=== PATIENT | male | born 1990 | race Caucasian/White ===

== ENCOUNTER 2024-12-21 09:48 | Outpatient (REF) | payer MEDICAID, SELFPAY ==
--- OUTSIDE RECORDS SUMMARY | 2024-12-21 10:43 | XMS_ITS | Clinical Summary ---
Author Organization [employer] Address [address] [place] [address] Care Team Providers Care Technical Support Agent Name Role Phone Hayley Hughes MD Primary Care Provider [phone] Allergies Active Allergy Reactions Criticality Noted Date Comments Aspirin Unknown 02/26/2023 Shellfish-Derived Products Anaphylaxis,Angioedema High 12/05/2024 Medications Blood Pressure kitIndications:H ypertension, unspecified type Use to monitor blood pressure at home 1 kit 12/09/19 Active dapagliflozin (Farxiga) 10 MG Take 1 tablet by mouth Once per day. 12/09/19 Active hydrALAZINE (Apresoline) 25 MG tablet Take 1 tablet by mouth 3 times daily. 12/08/19 25 2024 Active metoprolol succinate XL (Toprol-XL) 100 MG 24 hr tablet Take 1 tablet by mouth Once per day. 12/09/19 25 2025 Active nicotine (Nicoderm, Step 1) 21 MG/24HR patch Place 1 patch on the skin 1 (one) time each day at the same time. 12/08/192024 Active spironolactone (Aldactone) 25 MG tablet Take 1 tablet by mouth Once per day. 12/09/19 25 2024 Active dextran 70-hypromellose (dextran-70 & hydroxypropyl methylcellulose) 0.1-0.3 % ophthalmic solution Administer 1 drop into the right eye if needed in the morning, at noon, and at bedtime for dry eyes. 15 mL 12/22/19 25 2025 Active sacubitril-valsa rtan (Entresto) 24-26 MG tablet Take 1 tablet by mouth 2 times daily. 180 tablet 1 12/22/19 Active hydrOXYzine HCl (Atarax) 25 MG tablet TAKE 1 TABLET BY MOUTH TWICE DAILY NEEDED FOR ANXIETY 60 tablet 6 02/29/202024 Discontinued(M ed list cleanup (will not trigger notification to Pharmacy)) buPROPion SR (Wellbutrin SR) 150 MG 12 hr tablet TAKE 1 TABLET BY MOUTH ONCE DAILY FOR 3 DAYS THEN INCREASE TO 1 TABLET TWICE DAILY 60 tablet 02/29/202024 Discontinued(M ed list cleanup (will not trigger notification to Pharmacy)) amLODIPine (Norvasc) 5 MG tablet Take 1 tablet (5 mg) by mouth in the morning. 90 tablet 3 02/27/202024 Discontinued(M ed list cleanup (will not trigger notification to Pharmacy)) hydroCHLOROthiaz chapin (HYDRODiuril) 50 MG tablet Take 1 tablet (50 mg) by mouth in the morning. 30 tablet 11 03/12/202024 Discontinued(M ed list cleanup (will not trigger notification to Pharmacy)) lisinopril 40 MG tablet Take 1 tablet (40 mg) by mouth in the morning. 30 tablet 11 03/12/202024 Discontinued(M ed list cleanup (will not trigger notification to Pharmacy)) sacubitril-valsa rtan (Entresto) 24-26 MG tablet Take 1 tablet by mouth 2 times daily. 12/08/19 25 2024 Discontinued(R eorder (will not trigger notification to Pharmacy)) dextran 70-hypromellose (dextran-70 & hydroxypropyl methylcellulose) 0.1-0.3 % ophthalmic solution Administer 1 drop into the right eye if needed in the morning, at noon, and at bedtime. 12/18/19 25 2024 Discontinued(R eorder (will not trigger notification to Pharmacy)) Active Problems Problem Noted Date Diagnosed Date CKD (chronic kidney disease) 12/20/2024 ACC/AHA stage B systolic heart failure 5 Polycystic kidney, adult type 06/16/2020 Hypertension 12/02/2019 02/26/2023 Assessment & Plan (12/21/2024 9:46 AM EDT): -Goal BP < 130/80 per ACC/AHA guideline (Treatment threshold >=130/80) - -Continue working on lifestyle modifications -Recommended self-monitoring BP. -Continue current medications: -Treatment Hx: Tobacco use 12/20/2014 Encounters Date Type Department Care Team Description 12/21/2024 9:00 AM EDT Office Visit [address] [address] Deborah De Leon MD Stage 3a chronic kidney disease (CMS/HCC) (Primary Dx); Hypertension, unspecified type; Polycystic kidney, adult type; Dietary counseling; Exercise counseling; Class 1 obesity due to excess calories with serious comorbidity and body mass index (BMI) of 34.0 to 34.9 in adult; Blurry vision; Subconjunctival hemorrhage of right eye 12/21/2024 Travel 12/18/[address] [address] Deborah De Leon MD CHART PREP 12/18/[address] [address] Lakshmi Oreilly, PharmD FYI 12/18/[address] [address] Hayley Hughes MD Medication Question 12/08/[address] [address] Hayley Hughes MD Hypertension, unspecified type 12/07/2024 Patient Outreach [address] [address] Hayley Hughes MD Transition Of Care (Tcm) (HDF unscheduled ) 12/07/[address] [address] Hayley Hughes MD Hospital Follow-up from Last 3 Months Immunizations Immunization Administration Dates Next Due Influenza injectable quadriv alent IIV4 with preservative 01/22/2017 Social History Tobacco Use Types Packs/Day Years Used Date Smoking Tobacco: Every Day Cigarettes Passive Smoke Exposure: Past Smokeless Tobacco: Never Tobacco Cessation:Ready to Q uit: Not Asked; Counseling Given: Not Answered Depression Answer Date Recorded Patient Health Questionnaire-9 Score 0 12/21/2024 Patient Health Questionnaire-9 Score 0 12/21/2024 Last PHQ-9: Questionnaire Data Not on file 0 12/21/2024 Housing Stability Answer Date Recorded What is your housing situation today? I have jose cruz rasheed 08/19/[address] you li ve. Do you have problems with any of the following? None of the above 08/19/2023 Food Insecurity Answer Date Recorded Within the past 12 months, y ou worried that your food would run out before you got money to buy more: Never True 08/19/2023 Within the past 12 months,th e food you bought just didn't last and you didn't have enough money to get more: Never True Transportation Answer Date Recorded In the past 12 months, has l ack of transportation kept you from medical appts, meetings, work or from getting things needed for daily living? No 08/19/2023 Utilities Answer Date Recorded In the past 12 months, has t he electric, gas, oil or water company threatened to shut off services in your home? No 08/19/2023 Depression Answer Date Recorded Patient Health Questionnaire-2 Score 0 12/21/2024 Sex and Gender Information Value Date Recorded Sex Assigned at Male 02/26/2022 10:27 AM EDT Legal Sex Male 10:27 AM EDT Gender Identity Male 02/26/2022 10:27 AM EDT Sexual Orientation Straight 02/26/2022 10 :27 AM EDT Last Filed Vital Signs Vital Sign Reading Time Taken Comments Blood Pressure 164/100 12/21/2024 9:29 AM EDT Pulse 57 12/21/2024 9:15 AM EDT Temperature 36.2 C (97.1 F) 12/21/2024 9:15 AM EDT Respiratory Rate 14 12/21/2024 9:15 AM EDT Oxygen Saturation 100% 12/21/2024 9:15 AM EDT Inhaled Oxygen Concentration - - Weight 105 kg (230 lb 12.8 oz) 12/21/2024 9:15 A M EDT Height 175.3 cm (5' 9 ) 12/21/2024 9:15 AM EDT Body Mass Index 34.08 12/21/2024 9:15 AM EDT Plan of Treatment Upcoming Encounters Date Type Department Care Team (Late st Contact Info) Description 02/05/2025 1:45 PM EDT Office Visit [facility] [address] [place] [address] Hayley Hughes MD [address] [place] [address] Health Maintenance Due Date Last Done Comments HIV Screening 1990 Lipid Panel 1990 Family Planning (PISQ) 2005 HPV Vaccines (1 - Male 3-dos e series) 2005 Hepatitis C Screening 2008 DTaP/Tdap/Td Vaccines (1 - Tdap) 2009 Hepatitis B Vaccines (1 of 3 - 19+ 3-dose series) 2009 Pneumococcal Vaccine: Pediatrics (0 to 5 Years) and At-Risk Patients (6 to 49) Years (1 of 2 - PCV) 2009 COVID-19 Vaccine (4 - 2023-2 5 season) 2023 05/11/2021, 09/07/2020, 08/10/2020 SDOH Screening 08/18/2024 08/19/2023 Influenza Vaccine (#1) 2024 01/22/2017 Alcohol/Substance Use Screening 12/21/2025 12/21/2024 Depression Screening 12/21/2025 12/21/2024, 12/21/2024 Disability Screening 12/21/2025 12/21/2024 Tobacco Screening 12/21/2025 12/21/2024 Zoster Vaccines (1 of 2) 2040 RSV Patients and Patients Aged 60 years or older (1 - 1-dose 75+ series) 2065 HIB Vaccines Aged Out No longer eligi ble based on patient's age to complete this topic Hepatitis A Vaccines Aged Out No long er eligible based on patient's age to complete this topic IPV Vaccines Aged Out No longer eligi ble based on patient's age to complete this topic Meningococcal B Vaccine Aged Out No l onger eligible based on patient's age to complete this topic Meningococcal Vaccine Aged Out No matt eben eligible based on patient's age to complete this topic RSV under 20 months Aged Out No longe r eligible based on patient's age to complete this topic Rotavirus Vaccines Aged Out No longer eligible based on patient's age to complete this topic Insurance C3 Care Teams Technical Support Agent Relationship Specialty Start Date End Date Hayley Hughes MD [address] [place] [id number] PCP - General Family Medicine 01/01/24
--- OUTSIDE RECORDS SUMMARY | 2024-12-21 10:43 | XMS_ITS | Encounter Summary ---
Author Organization [facility], Address [address] [place] [address] Phone Care Team Providers Care Professor Of Architecture Name Role Phone Amarjit Biggs MD Primary Care Provider Unav ailable Encounter Details Date Type Department Care Team (Late st Contact Info) Description 11/03/2021 Documentation Only [facility], [address] [place] [address] [place] [address] [place] [address] Social History Tobacco Use Types Packs/Day Years Used Date Smoking Tobacco: Every Day Cigarettes Alcohol Use Standard Drinks/Week Comments No 0 (1 standard drink = 0.6 oz pur e alcohol) Sex and Gender Information Value Date Recorded Sex Assigned at Not on file Legal Sex Male 4:36 PM EST Gender Identity Not on file Sexual Orientation Not on file documented as of this encounter Plan of Treatment Not on file documented as of this encounter Visit Diagnoses Not on filedocumented in this encounter Care Teams Professor Of Architecture Relationship Specialty Start Date End Date Amarjit Biggs MD PCP - General Internal Medicine 11/11/19 documented as of this encounter
--- OUTSIDE RECORDS SUMMARY | 2024-12-21 10:43 | XMS_ITS | Clinical Summary ---
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 Relative 0.1 % LAB HEMETOLOGY METHOD 12/06/2024 8:14 AM [facility] Neutrophils Absolute 4.39 1.50 - 7.00 K/mcL LAB HEMETOLOGY METHOD 12/06/2024 8:14 AM [facility] Lymphocytes Absolute 2.08 1.00 - 5.00 K/mcL LAB HEMETOLOGY METHOD 12/06/2024 8:14 AM [facility] Monocytes Absolute 0.61 0.20 - 1.00 K/mcL LAB HEMETOLOGY METHOD 12/06/2024 8:14 AM [facility] Eosinophils Absolute 0.07 0.00 - 0.50 K/mcL LAB HEMETOLOGY METHOD 12/06/2024 8:[address] [facility] Basophils Absolute 0.04 0.00 - 0.20 K/[facility] LAB HEMETOLOGY METHOD 12/06/2024 8:[address] [facility] Immature Granulocytes Absolute 0.01 0.00 - 0.03 K/[facility] LAB HEMETOLOGY METHOD 12/06/2024 8:[address] [facility] Blood Venous blood specimen / Unknown Venipuncture / Unknown 12/06/2024 6:04 AM EDT 12/06/2024 6:24 AM EDT Akira Sky MD LAB BLOOD ORDERABLES Final Result Performing Organization Address City/[facility]/ZIP Co de Phone Number [facility] [address] [place] [address], * (ABNORMAL) B-type natriuretic peptide (12/06/2024 6:04 AM EDT) BNP 188(H) <=100 pcg/mL LAB CHEMISTRY METHOD 12/06/2024 8:[address] [facility] Blood Venous blood specimen / Unknown Venipuncture / Unknown 12/06/2024 6:04 AM EDT 12/06/2024 6:24 AM EDT Akira Sky MD LAB BLOOD ORDERABLES Final Result [facility] [address] [place] [address], [place] [phone] * Pathologist review immunofixation, urine random (12/06/2024 1:24 AM EDT) Pathologist Interpretation Ivory Kate MD 12/09/2024 11:[address] [facility] Urine Urine specimen obtained by clean catch procedure / Unknown Non-blood Collection / Unknown 12/06/2024 1:24 AM EDT 12/06/2024 1:45 AM EDT us Dc Ro MD LAB URINE ORDERABLES Final Resu lt [facility] [address] [place] [address], [place] [phone] * (ABNORMAL) Urinalysis with reflex microscopic (12/06/2024 1:24 AM EDT) Specific [place] Urine 1.012 1.003 - 1.030 LAB URINALYSIS - AUTOMATED METHOD 12/06/2024 1:56 AM [facility] pH, Urine 6.0 5.0 - 8.0 pH LAB URINALYSIS - AUTOMATED METHOD 12/06/2024 1:56 AM [facility] Leukocytes, Urine Negative Negative LAB URINALYSIS - AUTOMATED METHOD 12/06/2024 1:56 AM [facility] Nitrite, Urine Negative Negative LAB URINALYSIS - AUTOMATED METHOD 12/06/2024 1:56 AM [facility] Protein, Urine 100(A) <=Trace mg/dL LAB URINALYSIS - AUTOMATED METHOD 12/06/2024 1:56 AM [facility] Glucose, Urine Negative Negative mg/dL LAB URINALYSIS - AUTOMATED METHOD 12/06/2024 1:56 AM [facility] Ketones, Urine Negative Negative mg/dL LAB URINALYSIS - AUTOMATED METHOD 12/06/2024 1:56 AM [facility] Urobilinogen, Urine 0.2 0.2 - 1.0 mg/dL LAB URINALYSIS - AUTOMATED METHOD 12/06/2024 1:56 AM [facility] Bilirubin, Urine Negative Negative LAB URINALYSIS - AUTOMATED METHOD 12/06/2024 1:56 AM [facility] Blood, Urine Trace(A) Negative LAB URINALYSIS - AUTOMATED METHOD 12/06/2024 1:[address] [facility] RBC, Urine 2.9 0 - 4 /HPF LAB URINALYSIS - AUTOMATED METHOD 12/06/2024 1:[address] [facility] WBC, Urine 0.5 0 - 4 /HPF LAB URINALYSIS - AUTOMATED METHOD 12/06/2024 1:[address] [facility] Squamous Epithelial, Urine 3 0 - 60 /LPF LAB URINALYSIS - AUTOMATED METHOD 12/06/2024 1:[address] [facility] Bacteria, Urine Negative Negative /HPF LAB URINALYSIS - AUTOMATED METHOD 12/06/2024 1:[address] [facility] Hyaline Casts, Urine 0.0 0 - 3 /LPF LAB URINALYSIS - AUTOMATED METHOD 12/06/2024 1:[address] [facility] Urine Urine specimen obtained by clean catch procedure / Unknown Non-blood Collection / Unknown 12/06/2024 1:24 AM EDT 12/06/2024 1:44 AM EDT us Akira Sky MD LAB URINE ORDERABLES Final Result Performing Organization Address [facility]/State/ZIP Co de Phone Number [facility] [address] [place] [address], * Sadler urine culture tube (12/06/2024 1:24 AM EDT) Extra Tube Hold for add-ons. 12/06/2024 3:[address] [facility] Comment:Auto resulted. Urine Urine specimen obtained by clean catch procedure / Unknown 12/06/2024 1:24 AM EDT 12/06/2024 1:45 AM EDT us Akira Sky MD LAB URINE ORDERABLES Final Result Performing Organization Address City/[facility]/ZIP Co de Phone Number [facility] [address] [place] [address], [place] [phone] * Immunofixation, urine (12/06/2024 1:24 AM EDT) [facility] Immunofixation Electrophoresis, Urine No monoclonal immunoglobulins detected. LAB CHEMISTRY METHOD 12/09/2024 11:[address] [facility] Urine Urine specimen obtained by clean catch procedure / Unknown Non-blood Collection / Unknown 12/06/2024 1:24 AM EDT 12/06/2024 1:45 AM EDT Dc Ro MD LAB URINE ORDERABLES Final Resu lt Performing Organization Address [facility] Co de Phone Number [facility] [address] [place] [address], [place] [phone] * Drug abuse screen 8a panel, urine (12/06/2024 1:24 AM EDT) [facility] Amphetamine Screen, Ur Negative Negative LAB CHEMISTRY METHOD 12/06/2024 2:[address] [facility] Comment:Certain OTC medicati ons containing ephedrine, phenylephrine, pseudoephedrine and phenylpropanolamine can cause false positive results. Barbiturate Screen, Ur Negative Negative LAB CHEMISTRY METHOD 12/06/2024 2:[address] [facility] Benzodiazepine Screen, Ur Negative Negative LAB CHEMISTRY METHOD 12/06/2024 2:[address] [facility] Cocaine Screen, Ur Negative Negative LAB CHEMISTRY METHOD 12/06/2024 2:[address] [facility] Opiate Screen, Ur Negative Negative LAB CHEMISTRY METHOD 12/06/2024 2:[address] [facility] Cannabinoid (THC) Screen, Ur Negative Negative LAB CHEMISTRY METHOD 12/06/2024 2:[address] [facility] Comment:Specimens from patie nts taking pantoprazole sodium (Protonix) have been shown to produce false positive results. Oxycodone Screen, Ur Negative Negative LAB CHEMISTRY METHOD 12/06/2024 2:[address] [facility] Fentanyl, Ur Negative Negative LAB CHEMISTRY METHOD 12/06/2024 2:[address] [facility] Urine Urine specimen obtained by clean catch procedure / Unknown Non-blood Collection / Unknown 12/06/2024 1:24 AM EDT 12/06/2024 1:[address] [facility] - 12/06/2024 2:22 AM EDT Assay cutoffs: Amphetamines 1000 ng/mL Barbiturates 200 ng/mL Benzodiazepines 200 ng/mL Cocaine 300 ng/mL Fentanyl 1 ng/mL Opiates 300 ng/mL Oxycodone 100 ng/mL THC 50 ng/mL Semi-quantitative assay for screening purposes only. Unconfirmed screening result should not be used for non-medical purposes. *ALTERNATE METHOD CONFIRMATION DONE UPON REQUEST ONLY* Akira Sky MD LAB URINE ORDERABLES Final Result Performing Organization Address City/[facility]/ZIP Co de Phone Number [facility] [address] [place] [address], [place] [phone] * Sodium, urine, random (12/06/2024 1:24 AM EDT) Sodium, Ur 102 mmol/L LAB CHEMISTRY METHOD 12/06/2024 2:[address] [facility] Urine Urine specimen obtained by clean catch procedure / Unknown Non-blood Collection / Unknown 12/06/2024 1:24 AM EDT 12/06/2024 1:45 AM EDT us Akira Sky MD LAB URINE ORDERABLES Final Result Performing Organization Address [facility]/ZIP Co de Phone Number [facility] [address] [place] [address], [place] [phone] * Protein, urine, random (12/06/2024 1:24 AM EDT) Protein, Urine 72 mg/dL LAB CHEMISTRY METHOD 12/06/2024 2:[address] [facility] Urine Urine specimen obtained by clean catch procedure / Unknown Non-blood Collection / Unknown 12/06/2024 1:24 AM EDT 12/06/2024 1:45 AM EDT us Akira Sky MD LAB URINE ORDERABLES Final Result [facility] [address] [place] [address], [place] [phone] * Creatinine, urine, random (12/06/2024 1:24 AM EDT) Creatinine, Urine 54.0 mg/dL LAB CHEMISTRY METHOD 12/06/2024 2:[address] [facility] Urine Urine specimen obtained by clean catch procedure / Unknown Non-blood Collection / Unknown 12/06/2024 1:24 AM EDT 12/06/2024 1:45 AM EDT us Akira Sky MD LAB URINE ORDERABLES Final Result [facility] [address] [place] [address], [place] [phone] * ECG 12 lead (12/05/2024 11:40 PM EDT) Only the most recent of2 resultswithin the time period is included. Ventricular Rate ECG 94 BPM [facility] Atrial Rate 94 BPM [facility] P-R Interval 142 ms [facility] QRS Duration 96 ms [facility] Q-T Interval 366 ms [facility]EM[facility] QTc 457 ms GEMUSE P Wave [place] 39 degrees GEMUSE R [place] -29 degrees GEMUSE T [place] 95 degrees GEMUSE ECG Interpretation Normal sinus rhythm Left atrial enlargement Left ventricular hypertrophy ( R in aVL , Trey product , Romhilt-Brooks ) Cannot rule out Septal infarct (cited on or before 05-DEC-2024) T wave abnormality, consider lateral ischemia When compared with ECG of 05-DEC-2024 22:10, (unconfirmed) No significant change was found Confirmed by BRANDY NOLAN ([id number]) on 12/07/2024 12:41:51 AM [facility] 12/05/2024 11:4 0 PM EDT 12/07/2024 12:41 AM EDT us Maria Teresa Live MD ECG ORDERABLES Final Result [facility] * XR Chest 2 Views (12/05/2024 11:24 PM EDT) Anatomical Region Laterality Modality Body Radiographic Felicitas ging 12/06/2024 8:42 AM EDT Impressions 12/06/2024 8:43 AM EDT Normal chest radiographs. -------- FINAL REPORT -------- Dictated By: See Wood Dictated Date: 12/06/2024 08:42 ET Assigned Physician: See Wood Reviewed and Electronically Signed By: See Wood Signed Date: 12/06/2024 08:43 ET Workstation ID: [id number] Transcribed By: Self Edit Transcribed Date: 12/06/2024 08:42 ET Narrative 12/06/2024 8:43 AM EDT PROCEDURE: PA and lateral radiographs of the chest. HISTORY: chest pain. COMPARISON: None. FINDINGS: The heart, mediastinum, lungs, pleural spaces, and bony thorax are normal. Procedure Note See Wood MD - 12/06/2024 PROCEDURE: PA and lateral radiographs of the chest. HISTORY: chest pain. COMPARISON: None. FINDINGS: The heart, mediastinum, lungs, pleural spaces, and bony thorax arenormal. IMPRESSION: Normal chest radiographs. -------- FINAL REPORT -------- Dictated By: See Wood Dictated Date: 12/06/2024 08:42 ET Assigned Physician: See Wood Reviewed and Electronically Signed By: See Wood Signed Date: 12/06/2024 08:43 ET Workstation ID: [id number] Transcribed By: Self Edit Transcribed Date: 12/06/2024 08:42 ET us Maria Teresa Live MD IMG XR PROCEDURES Final Result * Lipase (12/05/2024 10:24 PM EDT) [facility] Lipase 44 13 - 75 unit/L LAB CHEMISTRY METHOD 12/05/2024 11:[address] [facility] Blood Venous blood specimen / Unknown Venipuncture / Unknown 12/05/2024 10:24 PM EDT 12/05/2024 10:30 PM EDT us Maria Teresa Live MD LAB BLOOD ORDERABLES Final Resul t Performing Organization Address City/[facility]/ZIP Co de Phone Number [facility] [address] [place] [address], [place] [phone] * Hemoglobin A1c (12/05/2024 10:24 PM EDT) [facility] Hemoglobin A1C 5.4 <6.5 % LAB CHEMISTRY METHOD 12/06/2024 11:[address] [facility] Mean Bld Glu Estim. 108 mg/dL LAB CHEMISTRY METHOD 12/06/2024 11:[address] [facility] Blood Venous blood specimen / Unknown Venipuncture / Unknown 12/05/2024 10:24 PM EDT 12/05/2024 10:31 PM EDT us Akira Sky MD LAB BLOOD ORDERABLES Final Result Performing Organization Address City/[facility]/ZIP Co de Phone Number [facility] [address] [place] [address], [place] [phone] * (ABNORMAL) Comprehensive metabolic panel (12/05/2024 10:24 PM [facility]) Sodium 139 133 - 145 mmol/L LAB CHEMISTRY METHOD 12/05/2024 11:02 PM [facility] Potassium 3.7 3.5 - 5.5 mmol/L LAB CHEMISTRY METHOD 12/05/2024 11:02 PM [facility] Chloride 108 96 - 110 mmol/L LAB CHEMISTRY METHOD 12/05/2024 11:02 PM [facility] CO2 24 21 - 32 mmol/L LAB CHEMISTRY METHOD 12/05/2024 11:02 PM [facility] Anion Gap 7 3 - 11 LAB CHEMISTRY METHOD 12/05/2024 11:02 PM [facility] Glucose 94 70 - 100 mg/dL LAB CHEMISTRY METHOD 12/05/2024 11:02 PM [facility] BUN 25 5 - 25 mg/dL LAB CHEMISTRY METHOD 12/05/2024 11:02 PM [facility] Creatinine 1.77(H) 0.70 - 1.30 mg/dL LAB CHEMISTRY METHOD 12/05/2024 11:02 PM [facility] eGFR 51(L) >=60 mL/min/1. 73m2 LAB CHEMISTRY METHOD 12/05/2024 11:02 PM [facility] Comment:Calculation based on the Chronic Kidney Disease Epidemiology Collaboration (CKD-EPI) equation refit without adjustment for race. BUN/Creatinine Ratio 14.1 LAB CHEMISTRY METHOD 12/05/2024 11:02 PM [facility] Calcium 9.3 8.5 - 10.5 mg/dL LAB CHEMISTRY METHOD 12/05/2024 11:02 PM [facility] AST (SGOT) 27 10 - 42 unit/L LAB CHEMISTRY METHOD 12/05/2024 11:02 PM [facility] ALT (SGPT) 28 10 - 60 unit/L LAB CHEMISTRY METHOD 12/05/2024 11:[address] [facility] Alkaline Phosphatase 89 42 - 121 unit/L LAB CHEMISTRY METHOD 12/05/2024 11:[address] [facility] Total Protein 7.2 6.0 - 8.0 g/dL LAB CHEMISTRY METHOD 12/05/2024 11:[address] [facility] Albumin 4.1 3.2 - 5.0 g/dL LAB CHEMISTRY METHOD 12/05/2024 11:[address] [facility] Total Bilirubin 0.5 0.0 - 1.4 mg/dL LAB CHEMISTRY METHOD 12/05/2024 11:[address] [facility] Blood Venous blood specimen / Unknown Venipuncture / Unknown 12/05/2024 10:24 PM EDT 12/05/2024 10:30 PM EDT us Maria Teresa Live MD LAB BLOOD ORDERABLES Final Resul t [facility] [address] [place] [address], from Last 3 Months Insurance MEDICAID - [place] Advance Directives * Full Code - Default (Latest Code Status on File) Date Activated Date Inactivated Comments 12/06/2024 12:32 AM 12/07/2024 3:53 PM This is ord er is used when code status has not been discussed with the patient, or code status is otherwise unknown/unconfirmed To update the patient's code status, place a code status order. Do not modify or discontinue any currently active code status orders. Care Teams Legislative Aide Relationship Specialty Start Date End Date Physician, Pcp Unknown PCP - General 12/05/24
[2024-12-21 12:07] LABS: Anion Gap 12 (12-20); Blood Urea Nitrogen 24 mg/dL (9-16); Calcium 9.6 mg/dL (8.4-10.2); Carbon Dioxide 25 mmol/L (22-29); Chloride 107 mmol/L (96-108); Estimated Glomerular Filt Rate 43; Potassium 4.2 mmol/L (3.3-5.1); Sodium 140 mmol/L (135-145)
== END 2024-12-21 09:49 | disposition home or self-care (01) ==
LOC: HO.HHCL 09:48
PROVIDERS: Family Medicine; PCP Internal Medicine; Visit Provider Internal Medicine
DX: N18.31 Chronic kidney disease, stage 3a (principal); I10 Essential (primary) hypertension
CPT/HCPCS: 36415; 80048